=== PATIENT | female | born 1995 | race African-American/Black ===

== ENCOUNTER 2020-12-09 21:22 | Emergency (ER) | payer SELFPAY | END 2020-12-09 23:06 | disposition left against medical advice (07) | LOC: CSHERS 21:22 | DX: Z53.21 Procedure and treatment not carried out due to patient leaving prior to being seen by health care provider (principal) ==

== ENCOUNTER 2021-05-18 18:16 | Emergency (ER) | payer SELFPAY ==
[2021-05-18] MEDS ORDERED: Ibuprofen 200 MG TAB ONE (19:09)
== END 2021-05-18 19:54 | disposition home or self-care (01) ==
LOC: CSHERS 18:16
DX: M25.571 Pain in right ankle and joints of right foot (principal)

== ENCOUNTER 2022-11-10 07:08 | Emergency (ER) | payer SELFPAY, OTHER ==
[2022-11-10] MEDS ORDERED: Acetaminophen 500 MG TAB ONE (07:55)
[2022-11-10] MEDS ORDERED: Ketorolac Tromethamine 30 MG/ML VIAL ONE (08:42)
== END 2022-11-10 09:10 | disposition home or self-care (01) ==
LOC: CSHERS 07:08
DX: M79.602 Pain in left arm (principal); M25.512 Pain in left shoulder
CPT/HCPCS: 71045; 93005; 93010; 96374; J1885